=== PATIENT | male | born 1955 | race African-American/Black ===

== ENCOUNTER 2016-10-30 10:24 | Emergency (ER) | payer OTHER ==
[2016-10-30 10:35] VITALS: BP 152/86
--- NOTE | 2016-10-30 11:25 | UC ---
Knee Pain HPI - HPI Summary HPI Summary: RIGHT KNEE AND ANKLE PAIN AND SWELLING FOR SEVERAL WEEKS. NO TRAUMA. PT REPORTS HE HAS GOUT. HAS BEEN TAKING COLCHICINE TWICE DAILY AND INDOMETHACIN TWICE DAILY NEEDED WITH NO IMPROVEMENT. REPORTS THE KNEE FEELS UNSTABLE AT TIMES. - History of Current Complaint Chief Complaint: UCLowerExtremity Stated Complaint: KNEE PAIN Time Seen by Provider: 10/30/16 11:22 Hx Obtained From: Patient Onset/Duration: Gradual Onset, Lasting Weeks, Still Present Severity Initially: Moderate Severity Currently: Moderate Pain Intensity: 9 Pain Scale Used: 0-10 Numeric Character: Sharp, Aching Aggravating Factor(s): Movement, Weight Bearing Alleviating Factor(s): Rest Associated Signs And Symptoms: Positive: Swelling Able to Bear Weight: Yes - WITH PAIN - Allergies/Home Medications Allergies/Adverse Reactions: Allergies Allergy/AdvReac Type Severity Reaction Status Date / Time No Known Allergies Allergy Verified 10/30/16 10:26 Home Medications: Home Medications Indomethacin CAP* [Indocin CAP*] 25 mg PO BID 10/30/16 [History Confirmed ] PMH/Surg Hx/FS Hx/Imm Hx - Additional Past Medical History Additional PMH: GOUT Cardiovascular History: Hypertension - Surgical History Surgical History: Yes Surgery Procedure, Year, and Place: hernia repair as a child - Family History Known Family History: Negative: Hypertension, Diabetes - Social History Alcohol Use: Daily Alcohol Amount: beer Substance Use Type: None Smoking Status (MU): Never Smoked Tobacco Review of Systems Constitutional: Negative Respiratory: Negative Cardiovascular: Negative Gastrointestinal: Negative Musculoskeletal: Arthralgia, Decreased ROM, Edema All Other Systems Reviewed And Are Negative: Yes Physical Exam Triage Information Reviewed: Yes Appearance: Well-Appearing, Well-Nourished, Pain Distress - MODERATE Vital Signs: Initial Vital Signs Temp 98 F 10/30/16 10:32 Pulse 65 10/30/16 10:32 Resp 16 10/30/16 10:32 BP 152/86 10/30/16 10:32 Pulse Ox 99 10/30/16 10:32 Vital Signs Reviewed: Yes Eyes: Positive: Conjunctiva Clear ENT: Positive: Hearing grossly normal Neck: Positive: Supple Respiratory: Positive: No respiratory distress, No accessory muscle use Cardiovascular: Positive: Pulses Normal Abdomen Description: Positive: Soft Musculoskeletal: Positive: ROM Limited @ - RIGHT KNEE AND ANKLE, Edema @ - RIGHT KNEE AND ANKLE, Other: - UNABLE TO DO FULL KNEE EXAM DUE TO PT DISCOMFORT. RIGHT KNEE IS SWOLLEN AND WARM TO TOUCH. TENDER ANTERIORLY. RIGHT ANKLE ALSO SWOLLEN AND TTP DIFFUSELY Neurological: Positive: Alert Psychological: Positive: Age Appropriate Behavior Skin: Negative: rashes Diagnostics - Radiology RIGHT KNEE XRAYS Xray Interpretation: Positive (See Comments) - mild tricompartmental joint space narrowing Radiology Interpretation Completed By: Radiologist RIGHT ANKLE XRAYS Xray Interpretation: No Acute Changes Radiology Interpretation Completed By: Radiologist Knee Pain Course/Dx - Differential Dx/Diagnosis Provider Diagnoses: 1. RIGHT KNEE PAIN/SWOLLEN JOINT. 2. RIGHT ANKLE PAIN/ SWOLLEN JOINT Discharge - Discharge Plan Condition: Stable Disposition: HOME Prescriptions: Hydrocodone-Acetaminophen [Lorcet 5-325 mg] 1 tab PO QID PRN #20 tab MDD 4 PRN Reason: Pain predniSONE TAB* [Deltasone TAB*] 40 mg PO DAILY #10 tab Patient Education Materials: Low Purine Diet (ED), Gout (ED), Swollen Knee Joint (ED), Swollen Joint (ED) Referrals: Frantz Merino MD [Primary Care Provider] - (keep your appt in 3 days) Romel Terrazas MD [Medical Doctor] - 1 Week Additional Instructions: RIGHT KNEE AND ANKLE XRAYS TODAY UNREMARKABLE FOR ACUTE ABNORMALITY. MILD OSTEOARTHRITIS IN THE KNEE. WILL COVER FOR GOUT WITH PREDNISONE. STOP COLCHICINE AND INDOMETHACIN FOR NOW. VICODIN FOR PAIN. KEEP YOUR FOLLOW-UP WITH DR. MERINO NEXT WEEK. YOU MAY BENEFIT FROM MRI IF YOUR SYMPTOMS ARE STILL NOT IMPROVED. KNEE IMMOBILIZER AND CRUTCHES FOR COMFORT. IF NOT IMPROVING WITH THE ABOVE TREATMENT FOLLOW-UP WITH ORTHO TO EVALUATE FOR OTHER UNDERLYING CONDITION. I WOULD ALSO RECOMMEND YOU GET WORKED UP FOR GOUT ONCE YOU ARE SYMPTOM FREE YOU MAY DO WELL TO BE ON DAILY PROPHYLACTIC TREATMENT TO PREVENT GOUTY ATTACKS.
--- NOTE | 2016-10-30 12:21 | RAD ---
HISTORY: Pain and swelling of right knee COMPARISONS: None VIEWS: 4, Frontal, lateral, axial, and oblique views of the right knee FINDINGS: BONE DENSITY: Normal. BONES: There is no displaced fracture. JOINTS: There is mild tricompartmental joint space narrowing. There is no suprapatellar joint effusion or lipohemarthrosis. ALIGNMENT: There is no dislocation. SOFT TISSUES: Unremarkable. OTHER FINDINGS: None. IMPRESSION: NO ACUTE OSSEOUS INJURY. IF SYMPTOMS PERSIST, RECOMMEND REPEAT IMAGING.
--- NOTE | 2016-10-30 12:22 | RAD ---
HISTORY: Right ankle pain and swelling COMPARISONS: None VIEWS: 3, Frontal, lateral, and oblique views of the right ankle FINDINGS: BONE DENSITY: Normal. BONES: There is no displaced fracture. JOINTS: There is no arthropathy. ALIGNMENT: There is no dislocation. SOFT TISSUES: Unremarkable. OTHER FINDINGS: None. IMPRESSION: NO ACUTE OSSEOUS INJURY. IF SYMPTOMS PERSIST, RECOMMEND REPEAT IMAGING.
== END 2016-10-30 13:06 | disposition home or self-care (01) ==
LOC: UCEAST 10:24
DX: M25.461 Effusion, right knee (principal); M25.471 Effusion, right ankle; M25.561 Pain in right knee; M25.571 Pain in right ankle and joints of right foot; I10 Essential (primary) hypertension
CPT/HCPCS: 99213; G0463

== ENCOUNTER 2017-08-28 08:25 | Emergency (ER) | payer OTHER ==
[2017-08-28 08:37] VITALS: BP 159/97
--- NOTE | 2017-08-28 09:08 | UC ---
Complaint Male HPI - HPI Summary HPI Summary: Pt is a 62 y/o M presenting w/ a constant erection lasting 3 days (started two days ago in the morning). He notes on first day erection was painful, second day less so, and today, the third day, the erection is described as "uncomfortable". Pain is rated 3/10 on triage. Pt reports being capable of urination and denies dysuria, fever, chills, abdominal pain, testicular pain, back pain, drainage, open areas, and rashes. He came to [facility] previously for Sx and was given a shot and four pills per os. Pt notes that he has had multiple episodes of Sx since initial visit, but notes they would resolve w/o treatment. He reports current episode is the worst he has had. Pt takes BP meds and tamsulosin and denies SHx of abdominal region. - History of Current Complaint Chief Complaint: [facility] [place] Stated Complaint: PERSONAL Time Seen by Provider: 08/28/17 08:38 Hx Obtained From: Patient Onset/Duration: Lasting Days - 3 days, Still Present Timing: Constant Severity Initially: Moderate Severity Currently: Mild Pain Intensity: 3 Pain Scale Used: 0-10 Numeric - 3/10 Location: Penis Aggravating Factor(s): Nothing Alleviating Factor(s): Nothing Associated Signs And Symptoms: Negative: Back Pain, Fever, Dysuria, Penile Discharge - Allergies/Home Medications Allergies/Adverse Reactions: Allergies Allergy/AdvReac Type Severity Reaction Status Date / Time No Known Allergies Allergy Verified 08/28/17 08:37 PMH/Surg Hx/FS Hx/Imm Hx Cardiovascular History: Hypertension Other History Of: Hepatitis C Negative For: HIV, Anticoagulant Therapy - Surgical History Surgical History: Yes Surgery Procedure, Year, and Place: hernia repair as a child - Family History Known Family History: Negative: Hypertension, Diabetes - Social History Alcohol Use: Daily Alcohol Amount: beer Substance Use Type: None Smoking Status (MU): Current Some Day Smoker Type: Cigarettes Review of Systems Constitutional: Other - NEGATIVE: fever, chills Gastrointestinal: Other - NEGATIVE: abdominal pain Genitourinary: Other - POSITIVE: constant erection NEGATIVE: dysuria, penile discharge, open areas/rashes on penis, testicular pain Musculoskeletal: Other: - NEGATIVE: back pain All Other Systems Reviewed And Are Negative: Yes Physical Exam - Summary Physical Exam Summary: General: well-appearing, no pain distress Skin: warm, color reflects adequate perfusion, dry Head: normal Eyes: EOMI, EZIO ENT: normal Neck: supple, nontender Respiratory: CTA, breath sounds present Cardiovascular: RRR Abdomen: soft, nontender Bowel: present Musculoskeletal: normal, strength/ROM intact Genitourinary: erection is present Neurological: sensory/motor intact, A&O x3 Psychological: affect/mood appropriate Triage Information Reviewed: Yes Vital Signs: Initial Vital Signs Temp 99.1 F 08/28/17 08:31 Pulse 70 08/28/17 08:31 Resp 18 08/28/17 08:31 BP 159/97 08/28/17 08:31 Pulse Ox 99 08/28/17 08:31 Vital Signs Reviewed: Yes Re-Evaluation - Re-Evaluation First Eval Re-Evaluation Time: 09:30 Change: Unchanged Comment: Discussed Sx and possibility of going to another facility for treatment Complaint Male Course/Dx - Course Course Of Treatment: DISCUSSED WITH DR JULIAN, UROLOGY. HE EXPRESSED CONCERN WITH THE PRIAPISM LASTING FOR 3 DAYS, A SHUNT WILL BE NEEDED WHICH IS A PROCEEDURE HE IS UNABLE TO DO AT [facility] [place] AND RECOMMENDED THE PATIENT GO DIRECTLY TO [facility] ED. AT [facility], UROLOGY IS ABLE TO DO SHUNTING IF NEEDED. THIS WAS ALL DISCUSSED WITH THE PATIENT. HE WAS ARRANGING A RIDE WITH A FRIEND TO [facility] BY [facility]. - Differential Dx/Diagnosis Provider Diagnoses: PRIAPISM - Physician Notifications Discussed Patient Care With: Gianluca Julian Time Discussed With Above Provider: 09:23 Instructed by Provider To: Other - Dr. Julian recommends pt go to [facility] for treatment. Discharge - Sign-Out/Discharge Documenting (check all that apply): Patient Departure - Discharge Plan Condition: Stable Disposition: HOME-RECOMMEND TO ED Patient Education Materials: Priapism (ED) Referrals: Frantz Richmond MD [Primary Care Provider] - Additional Instructions: I DISCUSSED YOUR CONDITION WITH OUR BOX LINING MACHINE OPERATOR UROLOGIST, DR JULIAN. HE RECOMMENDED YOU BE SEEN AT [facility] EMERGENCY DEPARTMENT TODAY FOR YOUR CONDITION. HE IS CONCERNED YOU WILL NEED A SHUNT WHICH CANNOT BE DONE AT [facility]. - Billing Disposition and Condition Condition: STABLE Disposition: Home-Recommend to ED
== END 2017-08-28 10:15 | disposition home health service (06) ==
LOC: UCEAST 08:25
DX: N48.30 Priapism, unspecified (principal); I10 Essential (primary) hypertension; Z72.0 Tobacco use
CPT/HCPCS: 81003; 87086; 87491; 87591; 99202; G0463

== ENCOUNTER 2018-12-02 10:25 | Emergency (ER) | payer OTHER ==
[2018-12-02 10:34] VITALS: BP 120/82
--- NOTE | 2018-12-02 10:34 | UC ---
Abdominal Pain Male HPI - HPI Summary HPI Summary: 63 yo male presents with 2 complaints; Of most concern to him is 1) Left foot pain for the last 2 days. He tells me that he has a history of gout to his b/l feet. Over the last 2 days has noticed redness and swelling to his left 1st MTP. Has not been taking anything OTC for this. Denies fevers, chills, or injury. 2) On 11/30 he developed generalized abdominal pain that was cramping in nature. Yesterday he vomiting 5-8 times and did not eat or drink due to vomiting and nausea. Today he feels better and is less nauseous and has had no vomiting, but he has pain in his epigastric region that is tender to touch. He has not eaten today because he is afraid he is going to vomit again. Last BM was yesterday. Denies fever, chills, SOB, chest pain, back or flank pain, dysuria, blood in stool. - History of Current Complaint Chief Complaint: UCGI Stated Complaint: L FOOT PAIN,ABD PAIN Hx Obtained From: Patient Onset/Duration: Gradual Onset Severity Initially: Mild Severity Currently: Mild Pain Intensity: 2 Pain Scale Used: 0-10 Numeric - Allergies/Home Medications Allergies/Adverse Reactions: Allergies Allergy/AdvReac Type Severity Reaction Status Date / Time No Known Allergies Allergy Verified 12/02/18 10:34 PMH/Surg Hx/FS Hx/Imm Hx - Additional Past Medical History Additional PMH: BPH Cardiovascular History: Hypertension Other History Of: Hepatitis C Negative For: HIV, Anticoagulant Therapy - Surgical History Surgical History: Yes Surgery Procedure, Year, and Place: hernia repair as a child - Family History Known Family History: Negative: Hypertension, Diabetes - Social History Lives: With Family Alcohol Use: Daily Alcohol Amount: 4 cans of beer per day Substance Use Type: None Smoking Status (MU): Current Some Day Smoker Type: Cigarettes Review of Systems All Other Systems Reviewed And Are Negative: No Constitutional: Positive: Negative Respiratory: Positive: Negative Cardiovascular: Positive: Negative Gastrointestinal: Positive: Abdominal Pain, Vomiting, Nausea Genitourinary: Positive: Negative Neurovascular: Positive: Negative Musculoskeletal: Positive: Other: - Left foot ?gout Neurological: Positive: Negative Psychological: Positive: Negative Physical Exam - Summary Physical Exam Summary: GENERAL: NAD. WDWN. No pain distress. SKIN: No rashes, sores, lesions, or open wounds. NECK: Supple. Nontender. No lymphadenopathy. CHEST: CTAB. No r/r/w. No accessory muscle use. Breathing comfortably and in no distress. CV: RRR. Pulses intact. Cap refill <2seconds ABDOMEN: Soft. Mild TTP at epigastric region. No distention or guarding. No CVA tenderness. Bowel sounds present MSK: LEFT FOOT: 1st MTP with moderate erythema and edema. TTP to light touch. FROM. Strength 5/5. NEURO: Alert. Sensations intact and symmetric B/L LEs PSYCH: Age appropriate behavior. Triage Information Reviewed: Yes Vital Signs: Initial Vital Signs Temp 99.5 F 12/02/18 10:28 Pulse 82 12/02/18 10:28 Resp 16 12/02/18 10:28 BP 120/82 12/02/18 10:28 Pulse Ox 100 12/02/18 10:28 Vital Signs Reviewed: Yes Abd Pain Male Course/Dx - Course Course Of Treatment: Left foot - suspect gout. His abdominal pain is improving and he has not vomited today, but he does have some point tenderness in his epigastric region. I discussed that gout medications may cause GI upset and recommended he go to the ER for eval of his abdominal pain, but he did not want to do this at this time. He states that his abdominal pain is improving and wishes to be treated for gout at this time and will go to the ER if his abdominal pain worsens or does not continue to improve. Unable to obtain urine sample from pt today as he self caths and just did this prior to arrival - Differential Dx/Clinical Impression Provider Diagnosis: Gout, Epigastric pain Discharge ED - Sign-Out/Discharge Documenting (check all that apply): Patient Departure All imaging exams completed and their final reports reviewed: No Studies - Discharge Plan Condition: Stable Disposition: HOME Prescriptions: Colchicine* [Colcrys*] 0.6 mg PO BID #10 tab predniSONE TAB* [Deltasone 20 MG TAB*] 40 mg PO DAILY #8 tab Patient Education Materials: Low Purine Diet (ED), Gout (ED) Referrals: Frantz Richmodn MD [Primary Care Provider] - Additional Instructions: If you develop a fever, shortness of breath, chest pain, new or worsening symptoms - please call your PCP or go to the ED immediately. - Billing Disposition and Condition Condition: STABLE Disposition: Home
== END 2018-12-02 11:00 | disposition home or self-care (01) ==
LOC: UCEAST 10:25
DX: M10.9 Gout, unspecified (principal); R10.13 Epigastric pain; F17.210 Nicotine dependence, cigarettes, uncomplicated
CPT/HCPCS: 99212; G0463